=== PATIENT | female | born 1935 | race Caucasian/White ===

== ENCOUNTER 2016-10-01 22:38 | Inpatient (IN) | payer MEDICARE, MEDICAID ==
[~2016-10-01] VITALS: Ht 152.4 cm; Wt 57.1 kg
[~2016-10-01 22:38] MED LIST: ASPI-973 PO; CHOL500011 PO; ESOM40CA41 PO; FURO-128 PO; GABA-504 PO; GABA100C PO; MULT-1018 PO; PRAM0.252 PO; SPIR25TA3 PO
[2016-10-01 22:41] VITALS: BP 203/71; PULSE 93; RESP 19; O2SAT 98
--- NOTE | 2016-10-01 23:07 | ED.REPORT ---
HPI-Extremity Problem Lower Date of Service Oct 01, 2016 ED Provider: Doc,Ed MD This is an 81 year old female with a history of HTN, hyperlipidemia, COPD, chronic kidney disease, right femoropopliteal bypass graft, s/p bilateral iliac artery angioplasty and stent placement presenting to the emergency department via EMS complaining of bilateral leg pain that began one month ago. Associated symptoms include redness and swelling of R calf and R knee pain. Denies fever, chills, nausea, vomiting, abdominal pain, constipation, diarrhea, or dysuria. Nursing Notes Stated Complaint: RIGHT LEG PAIN Chief Complaint: Extremity Trauma Nursing Notes Reviewed: Yes Allergies: Coded Allergies: acetaminophen (Verified Allergy, Severe, Rash,Itching,, 10/01/16) cephalexin (Verified Allergy, Severe, Rash,Itching,, 10/01/16) hydrocodone (Verified Allergy, Severe, Rash,Itching,, 10/01/16) codeine (Verified Adverse Reaction, Intermediate, N/V, 10/01/16) ITCHING Uncoded Allergies: TAPE (Allergy, Mild, Rash,Itching,, 06/08/16) pulls skin off, thin skin - per patient Scheduled Aspirin (Aspirin) 81 Mg Tablet 81 MG PO DAILY Cholecalciferol (Vitamin D3) (Vitamin D3) 5,000 Unit Tablet 5,000 UNIT PO DAILY Esomeprazole Magnesium (Nexium) 40 Mg Capsule.dr 80 MG PO DAILY Furosemide (Lasix) 40 Mg Tablet 40 MG PO DAILY Gabapentin (Gabapentin) 400 Mg Capsule 400 MG PO HS Gabapentin (Neurontin) 100 Mg Capsule 100 MG PO TID Multivitamin (Multi Vitamin Daily) 1 Each Tablet 1 EACH PO DAILY Pramipexole Dihydrochloride (Mirapex) 0.25 Mg Tablet 0.25 MG PO TID Spironolactone (Spironolactone) 25 Mg Tablet 25 MG PO DAILY General Time Seen by MD: 23:07 Chief Complaint Leg injury right Hx Obtained From: Patient Arrived By: Walk-in Onset Occurred: Just prior to arrival Symptom Duration: Since onset Severity: Current: Moderate Pertinent Negative: Pt denies other symptoms Recent Healthcare: No recent doctor visit, No recent hospitalization Similar Sx Previous: No Past Medical History Past Medical History 1. Significant for peripheral vascular disease, with five surgeries total, including a right fem-pop bypass in June 2006 with two redo in December 2006 and February 2007, along with bilateral iliac artery angioplasty and stent placement. 2. Chronic kidney disease, stage 3. 3. Hypertension. 4. Hyperlipidemia. 5. History of CVA with minimal residual defect. 6. COPD, still smoking. 7. Glaucoma. 8. History of GI bleed secondary to Plavix along with small-bowel AVMs. 9. Anemia of chronic disease with history of multiple transfusions due to her upper gastrointestinal bleeding. 10. The patient had retroperitoneal bleeding status post iliac stenting back in April 2012. 11. Restless legs syndrome. 12. Gastroesophageal reflux disease. 13. Upper gastrointestinal bleed. 14. Type II diabetes mellitus, oral agent controlled Past Surgical History Hysterectomy, appendectomy, , right femoralpopliteal bypass graft, with two redo's, as well as the bilateral iliac artery angioplasty and stent placement. Smoking History Current Some Day Smoker Social History Alcohol Use: Denies alcohol use Drug Use: Denies drug use Ambulatory Status Independent Review of Systems Constitutional: Denies: Chills, Fever Musculoskeletal: Reports: Extremity pain, Denies: Extremity swelling, Neck pain Complete sys rev & neg: except as marked. Respiratory: Denies: Non-productive cough, Shortness of breath Cardiovascular: Denies: Chest pain GI: Denies: Abdominal pain, Nausea, Vomiting Physical Exam Initial Vital Signs Vital Signs (First) Date Time Temp Pulse Resp B/P Pulse Ox O2 Delivery O2 Flow Rate FiO2 10/01/16 22:41 38.4 93 19 203/71 98 Room Air Initial VS: Reviewed General/Constitutional: Well-developed, Well-nourished Head / Eyes: Atraumatic, Normocephalic, PERRL ENT: Mucous membranes moist, Conjunctiva normal, No scleral icterus Neck: Supple, Non-tender, Full range of motion Respiratory: Breath sounds normal, Clear to auscultation, No respiratory distress Cardiovascular: Regular rate & rhythm, Heart sounds normal, Intact distal pulses Abdomen / GI: Soft, Non-tender, No guarding, No rebound, No distention Upper Extremities: Vascular intact, Neuro intact, No swelling, No tenderness Skin: Warm, Dry, No cyanosis Neurologic: Alert, Oriented, Nonfocal Psychiatric: Mood/affect normal, Behavior normal, Normal thought content Lower Extremity / Pelvis / MS: Neurologic intact, Vascular intact Significant R LE erythema and edema when compared to left. Erythema starts distal to the R knee and extends down past the ankle. L LE normal. Ankle / Foot: Atraumatic, Inspection NL, Full range of motion, No swelling, No erythema, Non-tender, No deformity, Neurologic intact, Vascular intact, No edema 2+ DP and PT pulses bilaterally Interpretation & Diagnostics Lab Results Interpretation Result Diagram: 10/01/16 2355 10/01/16 2355 Test 10/01/16 23:55 White Blood Count 9.4th/mm3 (3.8-10.1) Red Blood Count 3.69mil/mm3 (3.90-5.20) Hemoglobin 10.6g/dL (12.0-15.6) Hematocrit 32.1% (35.0-46.0) Mean Corpuscular Volume 87.0fL (81-100) Mean Corpuscular Hemoglobin 28.7pg (27.0-35.0) Mean Corpuscular Hemoglobin Concent 33.0% (32.0-37.0) Red Cell Distribution Width 14.4% (12.3-15.4) Platelet Count 158bil/L (150-400) Neutrophils (%) (Auto) 81.0% (40-74) Lymphocytes (%) (Auto) 9.1% (14-46) Monocytes (%) (Auto) 6.8% (4-12) Eosinophils (%) (Auto) 2.3% (0-5) Basophils (%) (Auto) 0.2% (0-3) Prothrombin Time 10.2sec (8.1-12.5) Prothromb Time International Ratio 0.95ratio Activated Partial Thromboplast Time 26.4sec (22.8-33.0) Sodium Level 136mEq/L (134-144) Potassium Level 4.9mEq/L (3.5-5.2) Chloride Level 101mEq/L (97-108) Carbon Dioxide Level 21mmol/L (18-29) Blood Urea Nitrogen 43mg/dL (8-27) Creatinine 1.46mg/dL (0.57-1.00) Estimat Glomerular Filtration Rate 49mL/min (>59) Glucose Level 114mg/dL (60-99) Lactic Acid Level 0.7mmol/L (0.4-2.0) Calcium Level 8.9mg/dL (8.5-10.1) Total Bilirubin 0.3mg/dL (0.0-1.2) Aspartate Amino Transf (AST/SGOT) 15U/L (0-50) Alanine Aminotransferase (ALT/SGPT) 11U/L (0-32) Alkaline Phosphatase 65U/L (25-165) Total Protein 7.1g/dL (6.4-8.4) Albumin 4.0g/dL (3.4-5.0) Procalcitonin 0.12ng/mL (0.00-0.08) X-Ray Chest Interpretation Chest Xray Interpretation: Diffuse interstitial edema of viral pattern Interpretation / Wet Read by: Wet read ED physician Re-Eval/Medical Decision Med Decision/Clinical Course 81-year-old female with extensive past medical history including chronic anemia , chronic renal failure, hypertension, COPD, status post femoropopliteal bypass on the right here with fever, and bilateral lower extremity pain with redness and swelling to right lower extremity. Differential diagnosis includes but is not limited to cellulitis versus pneumonia versus influenza versus urinary tract infection. DVT is also on differential. Patient's labs are remarkable for chronic baseline renal insufficiency and chronic anemia, also at baseline. She is febrile in the department. Her chest x-ray does not show any focal infiltrate, but does appear to have a viral pattern. She was unable to urinate in the emergency department, so I have given her a 500 mL fluid bolus. She does appear to have cellulitis of the right lower extremity. I have deferred ultrasound of her right lower extremity for DVT until the morning, as I do not feel it will affect her disposition and she is being admitted anyway. Admitting hospitalist is aware of the need for ultrasound in the morning. Patient is aware and amenable to admission at this time. I have given her antibiotics, and pancultured her. Re-Evaluation/Progress : Time of Eval: 00:56 Re-Evaluation/Progress Note: Discussed need for admission Consultation : Referral / Consult Name: Kamaljit Dang MD Consulted With: Hospitalist Call Returned at: 00:44 Sld Educational Aide: Accepts admit Counseled Regarding: Diagnosis, Lab results, Need for follow-up, Need for admission Discharge & Departure Impression: Primary Impression: UTI (urinary tract infection) Urinary tract infection type: site unspecified Hematuria presence: without hematuria Qualified Code: N39.0 - Urinary tract infection, site not specified Additional Impressions: Cellulitis Site of cellulitis: extremity Site of cellulitis of extremity: lower extremity Laterality: right Qualified Code: L03.115 - Cellulitis of right lower limb Fever Fever type: unspecified Qualified Code: R50.9 - Fever, unspecified Disposition: ADMITTED TO HOSPITAL Discharge Condition All VS Reviewed: Yes Condition: Stable Referrals: Renée Borges (PCP) Scribe Attestation Portions of this note were transcribed by Kassy Watkins. I, Dr. Ji personally performed the history, physical exam and medical decision-making; I reviewed and confirmed the accuracy of the information in the transcribed note. Signed by: titi Ortega. 10/01/2016, 23:00. Pamela Ji MD Oct 01, 2016 23:07 KASSY WATKINS Oct 01, 2016 23:11
[2016-10-01] MEDS ORDERED: 0.9% Sodium Chloride 500 ML IV ONE (23:35)
[2016-10-02] VITALS (7 sets, daily range): BP systolic 128–181; BP diastolic 39–70; PULSE 83–98; RESP 16–22; O2SAT 94–97
[2016-10-02 00:04] LABS: BASOPHILS % (AUTO) 0.2 % (0-3); EOSINOPHILS % (AUTO) 2.3 % (0-5); MONOCYTES % (AUTO) 6.8 % (4-12); Mean Corpuscular Hemoglobin 28.7 pg (27.0-35.0); Platelet Count 158 bil/L (150-400)
[2016-10-02 00:23] LABS: INR 0.95 ratio
[2016-10-02] MEDS ORDERED: Vancomycin Inj 1,000 MG in IV Premix 1 EACH IV ONE ×2 (00:30→03:00)
[2016-10-02] MEDS ORDERED: Piperacillin-Tazo 3.375 Gm Inj 3.375 GM in Dextrose 5% Minibag Plus 50 ML IV ONE (00:30)
[2016-10-02] MEDS ORDERED: Alum-Mag Hydrox-Simeth 30 mL Suspension PO PRN (00:55)
[2016-10-02] MEDS ORDERED: Ondansetron 2 mg/mL 2 mL Inj IVPUSH PRN (00:55)
[2016-10-02] MEDS ORDERED: Polyethylene Glycol (PEG) 17 Gm Powder PO PRN (01:15)
--- NOTE | 2016-10-02 01:52 | NUR ---
ADMIT Pt arrived at 0152. Report received for ED RN. Pt arrived via [facility]. Addendum: 10/02/16 at 0208 by FRANCISCO BOSTON RN Pt walked from rmerom to bed with 1-2PA and pt is unsteady on feet, wobbling around. Used standing scale for weight, though pt needed support. Resident in room now. Addendum: 10/02/16 at 0308 by FRANCISCO BOSTON RN Pt somnolent during admission, fell asleep often mid-sentence, mumbled responses, needed repeated stimuli to awaken. Pt states this is normal at home for her as well. NS running at 100, one dose Vanco to be given, one dose labetolol to be given.
[2016-10-02] MEDS ORDERED: 0.9% Sodium Chloride 1,000 ML IV ONE (02:40)
[2016-10-02] MEDS: Vancomycin Dose per Pharmacist XX SCH ×2 (02:40→08:30)
[2016-10-02] MEDS ORDERED: Labetalol 5 mg/mL 4 mL Inj IVPUSH ONE (03:05)
--- NOTE | 2016-10-02 03:10 | PCM.HPMED ---
Subjective Date of Service Oct 02, 2016 Primary Provider: Admitting Physician: Primary Care Physician: Renée Borges Attending Physician: Chief Complaint: Bilateral leg pain History of Present Illness: Brie Lutz is an 81-year-old female with past medical history significant for CVA, hypertension, hyperlipidemia, CAD status post stent placement, diabetes type II, CKD stage III, COPD, and right fem-pop bypass who presents to the ED via EMS complaining of one month of bilateral leg pain. Patient is a poor historian. Patient states that she has had increasing difficulty walking even with her walker due to the pain for the last two weeks. She had presented two weeks ago to urgent care and was prescribed muscle relaxants that did not improve symptoms. She denies any trauma, cuts, or sores on legs and feet. She states her legs in her opinion do not appear any different. When asked specifically about the redness she states that it is always that way and that the right leg is always more swollen than the left since her fem-pop bypass. Due to the pain she has not been eating as well because she does not feel up to standing and preparing meals. Years ago she saw a girls swimming coach but has not recently. She denies fever, chills, night sweats, nausea, vomiting, diarrhea, constipation, dysuria, hematuria, chest pain, or shortness of breath. Patient received flu vaccine this year. In the ED vitals were temp 38.4, pulse 93, BP 203/71, RR 19 with O2 sat of 98% on RA. Initial labs were significant for WBC 9.4, Hgb 10.6, Hct 32.1, BUN 43, Creatinine 1.46, and glucose 114. Lactic acid was negative. Rapid flu was negative. Patient was given one dose of Zosyn in ED. PCP: Dr. Borges Review of Systems: Comprehensive review of systems was conducted with the patient and found to be negative except as noted above in HPI. Allergies Coded Allergies: acetaminophen (Verified Allergy, Severe, Rash,Itching,, 10/02/16) cephalexin (Verified Allergy, Severe, Rash,Itching,, 10/02/16) hydrocodone (Verified Allergy, Severe, Rash,Itching,, 10/02/16) codeine (Verified Adverse Reaction, Intermediate, N/V, 10/02/16) ITCHING Uncoded Allergies: TAPE (Allergy, Mild, Rash,Itching,, 06/08/16) pulls skin off, thin skin - per patient Home Medications Nexium 80 mg daily Lasix 40 mg daily Gabapentin 100 mg TID, 400 mg HS Mirapex 0.25 mg TID Spironolactone 25 mg daily Sertraline 50 mg daily PMH History of CVA with minimal residual defect. Chronic kidney disease, stage 3. Hypertension. Hyperlipidemia. Type 2 diabetes mellitus, not on medication, diet controlled Peripheral vascular disease, with five surgeries total, including a right fem- pop bypass in June 2006 with two redo in December 2006 and February 2007, along with bilateral iliac artery angioplasty and stent placement. COPD, still smoking. Glaucoma. History of GI bleed secondary to Plavix and small bowel AVMs. History of retroperitoneal bleeding status post iliac stenting back in April 2012. Anemia, multifactorial, likely associated with her chronic iron deficiency as well as her chronic renal disease. Restless legs syndrome. Gastroesophageal reflux disease. Surgical History Hysterectomy Appendectomy Right fem-pop bypass graft, with two redo's Bilateral iliac artery angioplasty and stent placement. Family History No cancer Sister - at age 80 Sister - due to CVA Mother - but no known health conditions Father - but no known health conditions Social History Hx Alcohol Use: No Hx Substance Use: No Hx Tobacco Use: Yes (3 cigarettes a day) Smoking Status: Current Every Day Smoker Living Arrangement: Alone Exam Vital Signs Vital Sign - Last Date Time Temp Pulse Resp B/P Pulse Ox O2 Delivery O2 Flow Rate FiO2 10/02/16 01:05 98 16 181/53 97 Room Air 10/01/16 22:41 38.4 Intake and Output 10/01/16 10/01/16 10/02/16 Cumulative From/Thru 15:00 23:00 07:00 10/01/16 22:41 - 10/01/16 23:57 Intake Total 500 ml 500 ml Balance 500 ml 500 ml Intake IV Total 500 ml 500 ml Exam General: No acute distress, well-developed, well-nourished, appropriately interactive HEENT: Normocephalic, atraumatic. External ears without defect. Pupils equal, round, and reactive to light and accommodation. Anicteric sclerae, moist conjunctivae, and no lid lag. Dry oral mucosa. Neck: Supple with full range of motion. No jugular venous distension. No bruits. No lymphadenopathy or thyromegaly. Cardiovascular: Regular rate and rhythm with 2/6 systolic murmur. Pulmonary: Clear to auscultation bilaterally with no crackles, wheezes, or rhonchi. Normal respiratory effort with no use of accessory muscles. Abdomen: Bowel tones present. Soft, nontender, nondistended. No hepatosplenomegaly or masses appreciated. Extremities: Right lower extremity erythema and edema starts distal to the knee and extends to the ankle. Left lower extremity without abnormality. No open wounds or abrasions. Posterior tibialis and dorsal pedis pulses equal and 2/4 bilaterally. Neurological: Cranial nerves grossly intact. Normal muscle strength, tone, and bulk. Reflexes, coordination, and sensory function within normal limits. Difficulty ambulating. Walks with walker at baseline. Psychiatric: Normal mood and affect. Alert and oriented to person, place, and time. Lab and Diagnostics Result Diagram: 10/01/16 5693 10/01/16 9336 Assessment & Plan Brie Lutz is an 81-year-old female with past medical history significant for CVA, hypertension, hyperlipidemia, CAD status post stent placement, diabetes type II, CKD stage III, COPD, and right fem-pop bypass who presents to the ED via EMS complaining of one month of bilateral leg pain. Admitted for cellulitis. 1. Cellulitis, present on admission. Active. Right lower extremity erythema and warmth. Possible swelling although difficult to ascertain baseline as patient had fem-pop bypass on right lower extremity and has had chronic lymphedema. - Patient febrile on admission. - Zosyn given in ED. Antibiotics switched to Vancomycin. - ASO titer pending. - Lactic acid negative. - Repeat CBC in the morning. - Consider lower extremity ultrasound. - Physical therapy evaluation ordered. 2. Acute on chronic kidney disease stage 3, present on admission. Active. Patient has had poor oral intake and BP is elevated currently. Last known Creatinine is 1.17 on 05/06/16. - Does not follow with nephrology. - Gentle IV fluid hydration with NS at 100 ml/hr for a total of 1L and then reassess. - Home regimen of spironolactone and furosemide held. - Repeat BMP in the morning. 3. Type 2 diabetes mellitus, present on admission. Active. Patient no longer takes oral agents. Manages with dietary modifications. - Blood glucose on admit 114. - Hemoglobin A1c pending. - Will continue to monitor. 4. Gastroesophageal reflux disease, present on admission. Chronic. - Nexium 80 mg daily continued from home. 5. Restless legs syndrome, present on admission. Chronic. - Mirapex 0.25 mg TID continued from home. - Gabapentin 100 mg TID, 400 mg HS continued from home. 6. Hypertension, present on admission. Active. Blood pressure elevated on admission at 203/71 now 175/67. Patient asymptomatic. - No blood pressure medications in home regimen except diuretics. - Single dose of labetalol 5 mg given. Will monitor effect. - Continue to monitor. 7. Other Chronic Conditions - History of CVA with minimal residual defect - Hyperlipidemia - Peripheral vascular disease - COPD, still smoking - Glaucoma - History of GI bleed secondary to Plavix and small bowel AVMs - History of retroperitoneal bleeding status post iliac stenting back in April 2012 - Anemia, multifactorial, likely associated with her chronic iron deficiency as well as her chronic renal disease Patient is admitted under observation status with expected length of stay less than 2 midnights due to severity of presenting symptoms, risk of adverse event, and complexity of treatment plan. Pain Evaluation: Adequate Pain Control GI Prophylaxis: Proton Pump Inhibitor VTE Prophylaxis: Sub-Q Heparin (Unfractionated) Resuscitation Status: DNR/DNI:Do Not Resuscitate/Intubate Attending Statement The patient was seen and examined together with Dr. Connolly on 10/02 and I agree with the history, exam and plan as outlined in the note above. COSMO CONNOLLY DO Oct 02, 2016 01:28 Kamaljit Dang MD Oct 02, 2016 03:59
[2016-10-02 03:28] LABS: APPEARANCE,URINE HAZY (CLEAR,HAZY); COLOR,URINE YELLOW (YELLOW); OCCULT BLOOD,URINE TRACE (NEGATIVE); UROBILINOGEN,URINE NORMAL (NORMAL)
--- NOTE | 2016-10-02 04:17 | PCM.CONPHA ---
Subjective Date of Service: Oct 02, 2016 Requesting Provider: COSMO CONNOLLY DO Bilateral leg pain Reason for Pharmacy Consult: Vancomycin Dosing Objective Vital Signs Date Time Temp Pulse Resp B/P Pulse Ox O2 Delivery O2 Flow Rate FiO2 10/02/16 02:08 37.3 93 18 175/67 95 Room Air 10/02/16 01:44 98 22 157/39 96 10/02/16 01:05 98 16 181/53 97 Room Air 10/01/16 22:41 38.4 93 19 203/71 98 Room Air Intake and Output 09/30/16 10/01/16 10/02/16 00:00 00:00 00:00 Intake Total 500 ml Balance 500 ml Weight (Kilograms): 57.100 Height (Feet): 5 Height (Inches): 0 Test 10/01/16 23:55 10/02/16 02:00 White Blood Count 9.4th/mm3 (3.8-10.1) Red Blood Count 3.69mil/mm3 (3.90-5.20) Hemoglobin 10.6g/dL (12.0-15.6) Hematocrit 32.1% (35.0-46.0) Mean Corpuscular Volume 87.0fL (81-100) Mean Corpuscular Hemoglobin 28.7pg (27.0-35.0) Mean Corpuscular Hemoglobin Concent 33.0% (32.0-37.0) Red Cell Distribution Width 14.4% (12.3-15.4) Platelet Count 158bil/L (150-400) Neutrophils (%) (Auto) 81.0% (40-74) Lymphocytes (%) (Auto) 9.1% (14-46) Monocytes (%) (Auto) 6.8% (4-12) Eosinophils (%) (Auto) 2.3% (0-5) Basophils (%) (Auto) 0.2% (0-3) Prothrombin Time 10.2sec (8.1-12.5) Prothromb Time International Ratio 0.95ratio Activated Partial Thromboplast Time 26.4sec (22.8-33.0) Sodium Level 136mEq/L (134-144) Potassium Level 4.9mEq/L (3.5-5.2) Chloride Level 101mEq/L (97-108) Carbon Dioxide Level 21mmol/L (18-29) Blood Urea Nitrogen 43mg/dL (8-27) Creatinine 1.46mg/dL (0.57-1.00) Estimat Glomerular Filtration Rate 49mL/min (>59) Glucose Level 114mg/dL (60-99) Lactic Acid Level 0.7mmol/L (0.4-2.0) Calcium Level 8.9mg/dL (8.5-10.1) Total Bilirubin 0.3mg/dL (0.0-1.2) Aspartate Amino Transf (AST/SGOT) 15U/L (0-50) Alanine Aminotransferase (ALT/SGPT) 11U/L (0-32) Alkaline Phosphatase 65U/L (25-165) Total Protein 7.1g/dL (6.4-8.4) Albumin 4.0g/dL (3.4-5.0) Procalcitonin 0.12ng/mL (0.00-0.08) Urine Color Yellow (YELLOW) Urine Appearance Hazy (CLEAR,HAZY) Urine pH 6.0 (5.0-8.0) Urine Specific [place] 1.015 (1.003-1.035) Urine Protein Negativemg/dL (NEG,TRACE) Urine Glucose (UA) Negativemg/dL (NEGATIVE) Urine Ketones Negativemg/dL (NEGATIVE) Urine Occult Blood Trace (NEGATIVE) Urine Nitrite Positive (NEGATIVE) Urine Bilirubin Negative (NEGATIVE) Urine Urobilinogen Normalmg/dL (NORMAL) Urine Leukocyte Esterase Trace (NEGATIVE) Urine RBC 0-2/hpf (0-2) Urine WBC 11-50/hpf (0-5) Urine Epithelial Cells Occasional/hpf (NONE-MOD) Urine Crystals None seen (NONE SEEN) Urine Bacteria Many/hpf (NONE-FEW) Urine Hyaline Casts None/lpf (NONE) Urine Granular Casts None seen (NONE SEEN) Urine Waxy Casts None seen (NONE SEEN) Urine Red Blood Cell Casts None seen (NONE SEEN) Urine White Blood Cell Casts None seen (NONE SEEN) Urine Mucus None seen (None Seen) Urine Trichomonas None seen (NONE SEEN) Urine Yeast None (NONE SEEN) Urine Culture Reflexed Indicated Assessment/Plan Assessment/Plan A: * Vancomycin dosing by pharmacy for 81 y/o diabetic woman with cellulitis * The patient received a vancomycin loading dose of 1000 mg IV * She has CASEY on CKD with a SCr of 1.46 mg/dL * Vancomycin half-life estimations based on CrCl may be inaccurate due to CASEY * Estimated vancomycin Vd is 40 liters * Vancomycin 500 mg IV every 24 hours would likely be appropriate for this patient P: * Drawing a vancomycin level about 24 hours after the loading dose to monitor vancomycin clearance, due to the patient's renal risk * Pharmacy to determine dosing based on the level * Target a vancomycin trough range of 10 - 15 mcg/mL Thank you. Pharmacy will continue to follow. Genny Valles, PharmD Genny Valles Oct 02, 2016 04:17
[2016-10-02 07:01] LABS: BASOPHILS % (AUTO) 0.2 % (0-3); EOSINOPHILS % (AUTO) 1.2 % (0-5); MONOCYTES % (AUTO) 8.5 % (4-12); Mean Corpuscular Hemoglobin 28.7 pg (27.0-35.0); NEUTROPHILS % (AUTO) 77.3 % (40-74); Platelet Count 147 bil/L (150-400)
[2016-10-02 07:26] LABS: Magnesium 1.9 mg/dL (1.6-2.6)
--- NOTE | 2016-10-02 07:47 | DRSVH ---
PROCEDURE: X-RAY CHEST, TWO VIEWS ([id number]) INDICATIONS: cough TECHNIQUE: 2 views of the chest were acquired. COMPARISON: [facility], CR, XR CHEST 2VW, 05/20/2016, 13:58. FINDINGS: Surgical changes and devices: Surgical clips projecting in the base of neck. Lungs and pleura: No pleural effusions or pneumothorax. Lungs are clear. Diffuse scarring/atelecta sis, however increased ill-defined groundglass opacities Mediastinum: Mediastinal contours are normal. Heart size is normal. Bones and chest wall: No suspicious bony abnormalities. Lateral curvature of the spine and diffuse d iscogenic changes. Soft tissues appear unremarkable. IMPRESSION: Mildly increased diffuse ill-defined and groundglass opacities raising the possibility of early pulmonary edema, versus atypical/viral pneumonia. Please correlate clinically Dictated by: Misael Carranza M.D. on 10/02/2016 at 7:45 Approved by: Misael Carranza M.D. on 10/02/2016 at 7:47
[2016-10-02] MEDS: Heparin 5,000 Unit/mL Inj SUBQ SCH ×2 (08:29→16:21)
[2016-10-02] MEDS: Pantoprazole 40 mg ER24 Tablet PO SCH (08:29)
--- NOTE | 2016-10-02 09:14 | NUR ---
Evaluation completed. Please go to "Notes" then click on "Assessments and Notes" (bottom left corner of screen). Then select appropriate discipline tab on top of screen.
--- NOTE | 2016-10-02 14:13 | NUR ---
Activity/ Screening Patient ambulating in the hallway with PT this morning with no difficulty. gait steady using FWW. Nasal swab sent to lab with a negative result for Rapid Flu screening. Eating and drinking well. Will continue to monitor.
--- NOTE | 2016-10-02 15:34 | NUR ---
[facility] signed
--- NOTE | 2016-10-02 16:05 | NUR ---
Social Work Note: Initial Assessment Data& Assessment: EMR reviewed. SW met with pt at bedside to discuss discharge planning, SW role explained. SW phone number provided on [employer]. Brie Lutz is a 81 year old female admitted today 10/02/2016 for UTI and Cellulitis with a fever. Pt has Medicare and [facility] supplemental insurance coverage. Pt sees ASHIA Leal for primary care. Pt lives in [place] in a first floor apartment, alone, and is independent at baseline. Pt uses a 4WW at baseline and also has an electric wheelchair at home but does not require its use at this time. Pt denies any HH or SNF hx. Pt denies any LTC insurance or VA benefits. SW requested a copy of her [facility] paperwork. Pt explained her brother Russell ([facility]) plans to transport her home when medically ready. Per PT, pt walked 300ft and is cleared to go home when medically ready. Pt denies any other needs at this time, SW to continue to follow if any needs arise. Plan: Anticipated discharge home via POV when medically ready. Pt denies any other needs at this time, SW to continue to follow if any needs arise. SUNIL Cosby Addendum: 10/02/16 at 1610 by JOCELYN JETT Amended: Links added.
[2016-10-03 00:50] VITALS: BP 182/65; PULSE 93; RESP 16; O2SAT 91
[2016-10-03] MEDS: Heparin 5,000 Unit/mL Inj SUBQ SCH ×3 (01:32→16:23)
[2016-10-03 04:33] VITALS: BP 172/63; PULSE 83; RESP 16; O2SAT 92
[2016-10-03] MEDS ORDERED: Vancomycin Serum Level XX ONE (05:00)
--- NOTE | 2016-10-03 06:01 | NUR ---
HTN Pt has been hypertensive MD Alton ashford paged, no new orders, continued to monitor. Pt has been asymptomatic and resting well.
[2016-10-03 07:20] VITALS: BP 185/68; PULSE 99; RESP 24; O2SAT 92
[2016-10-03] MEDS: Pantoprazole 40 mg ER24 Tablet PO SCH (07:34)
--- NOTE | 2016-10-03 08:46 | NUR ---
Fever Pt had fever this morning at 0720 of 39.1. Gave pt 975mg Tylenol. Pt temp re checked at 0830 temp was 37.5.
[2016-10-03] MEDS: Piperacillin-Tazo 3.375 Gm Inj 3.375 GM in Dextrose 5% Minibag Plus 50 ML IV SCH ×2 (11:00→16:30)
--- NOTE | 2016-10-03 15:21 | PCM.PNMED ---
Subjective Date of Service Oct 03, 2016 Subjective Continues to spike fever, temp 39.1 this morning. Urine culture growing Escherichia coli. Antibiotics switched from vancomycin to Zosyn. Influenza screening negative Exam Vital Signs Vital Sign - Last Date Time Temp Pulse Resp B/P Pulse Ox O2 Delivery O2 Flow Rate FiO2 10/03/16 08:40 37.5 10/03/16 07:20 99 24 185/68 92 Room Air Intake and Output 10/02/16 10/02/16 10/03/16 Cumulative From/Thru 15:00 23:00 07:00 10/01/16 22:41 - 10/03/16 06:46 Intake Total 914 ml 600 ml 2747 ml Output Total 600 ml 1400 ml Balance 914 ml 0 ml 1347 ml Intake Oral 600 ml 1080 ml IV Total 904 ml 1657 ml Tube Irrigant 10 ml 10 ml Output Urine Total 600 ml 1400 ml # Voids 3 3 7 # Bowel Movements 1 1 Exam General: No acute distress, well-developed, well-nourished, appropriately interactive HEENT: Normocephalic, atraumatic. External ears without defect. Pupils equal, round, and reactive to light and accommodation. Anicteric sclerae, moist conjunctivae, and no lid lag. Dry oral mucosa. Neck: Supple with full range of motion. No jugular venous distension. No bruits. No lymphadenopathy or thyromegaly. Cardiovascular: Regular rate and rhythm with 2/6 systolic murmur. Pulmonary: Clear to auscultation bilaterally with no crackles, wheezes, or rhonchi. Normal respiratory effort with no use of accessory muscles. Abdomen: Bowel tones present. Soft, nontender, nondistended. No hepatosplenomegaly or masses appreciated. Extremities: Right lower extremity erythema and edema starts distal to the knee and extends to the ankle. Left lower extremity without abnormality. No open wounds or abrasions. Posterior tibialis and dorsal pedis pulses equal and 2/4 bilaterally. Neurological: Cranial nerves grossly intact. Normal muscle strength, tone, and bulk. Reflexes, coordination, and sensory function within normal limits. Difficulty ambulating. Walks with walker at baseline. Psychiatric: Normal mood and affect. Alert and oriented to person, place, and time. IVs and Medications Medications Reviewed: Medications were reviewed in detail Lab and Diagnostics Result Diagram: 10/02/16 0640 10/03/16 0625 Microbiology Microbiology LOWELL CULT URINE Preliminary 10/03/16-822 PRELIMINARY ID GRAM NEG JESSICA, PROBABLE E COLI SUSCEPTIBILITIES TO FOLLOW COLONY COUNT/QUANTITY >100,000 CFU/ml X-Rays, CTs and MRIs PROCEDURE: X-RAY CHEST, TWO VIEWS ([id number]) INDICATIONS: cough IMPRESSION: Mildly increased diffuse ill-defined and groundglass opacities raising the possibility of early pulmonary edema, versus atypical/viral pneumonia. Please correlate clinically Dictated by: Misael Carranza M.D. on 10/02/2016 at 7:45 Assessment & Plan Brie Lutz is an 81-year-old female with past medical history significant for CVA, hypertension, hyperlipidemia, CAD status post stent placement, diabetes type II, CKD stage III, COPD, and right fem-pop bypass who presents to the ED via EMS complaining of one month of bilateral leg pain. Admitted for cellulitis. # sepsis due to cellulitis and UTI,resolving -Temp 39.1, CASEY with initial creatinine 1.46, initial HR 98 -Chest x-ray viral pneumonia versus pulmonary edema. Respiratory viral PCR ordered,home Lasix resumed.Added Azithromycin pending workup # E.coli UTI,acute,poa -pyuria on UA and urine culture growing Escherichia coli. Awaiting sensitivity -Continue Zosyn #. Cellulitis, present on admission. Active. Right lower extremity erythema and warmth. Possible swelling although difficult to ascertain baseline as patient had fem-pop bypass on right lower extremity and has had chronic lymphedema. - Patient febrile on admission. - Zosyn given in ED. Antibiotics initially switched to Vancomycin. will switch back to Zosyn . - ASO titer pending. - Lactic acid negative. - Physical therapy evaluation ordered. #. Acute on chronic kidney disease stage 3, present on admission. Active. Patient has had poor oral intake and BP is elevated currently. Last known Creatinine is 1.17 on 05/06/16. - Does not follow with nephrology. - Gentle IV fluid hydration with NS at 100 ml/hr for a total of 1L . Creatinine improving - Home regimen of spironolactone held,resume furosemide #. Type 2 diabetes mellitus, present on admission. Active. Patient no longer takes oral agents. Manages with dietary modifications. - Blood glucose on admit 114. - Hemoglobin A1c pending. - Will continue to monitor. #. Gastroesophageal reflux disease, present on admission. Chronic. - Nexium 80 mg daily continued from home. #. Restless legs syndrome, present on admission. Chronic. - Mirapex 0.25 mg TID continued from home. - Gabapentin 100 mg TID, 400 mg HS continued from home. #. Hypertension, present on admission. Active. Blood pressure elevated on admission at 203/71 . Patient asymptomatic. - No blood pressure medications in home regimen except diuretics. - Single dose of labetalol 5 mg given on admission. Will monitor effect. -Resumed home Lasix - Continue to monitor. #. Other Chronic Conditions - History of CVA with minimal residual defect - Hyperlipidemia - Peripheral vascular disease - COPD, still smoking - Glaucoma - History of GI bleed secondary to Plavix and small bowel AVMs - History of retroperitoneal bleeding status post iliac stenting back in April 2012 - Anemia, multifactorial, likely associated with her chronic iron deficiency as well as her chronic renal disease Disposition: Discharge home 2-3 days . Patient had fever this morning. Needs to be fever free for at least 24 hours GI Prophylaxis: Proton Pump Inhibitor VTE Prophylaxis: Sub-Q Heparin (Unfractionated) VTE Mechanical Devices: Intermittant Pneumatic CD Resuscitation Status: DNR/DNI:Do Not Resuscitate/Intubate Marquez Swift MD Oct 03, 2016 15:21
[2016-10-03] MEDS ORDERED: Azithromycin Inj 500 MG in Dextrose 5% w/Vial Mate 250 ML IV SCH (15:35)
[2016-10-04] VITALS (8 sets, daily range): BP systolic 103–194; BP diastolic 55–80; PULSE 14–103; RESP 16–18; O2SAT 94–98
[2016-10-04] MEDS: Piperacillin-Tazo 3.375 Gm Inj 3.375 GM in Dextrose 5% Minibag Plus 50 ML IV SCH ×3 (01:06→16:16)
[2016-10-04] MEDS: Heparin 5,000 Unit/mL Inj SUBQ SCH ×3 (01:06→16:17)
--- NOTE | 2016-10-04 06:06 | NUR ---
BM Pt was unable to make it to the bathroom and had bowel movement all over the room. Roomate was moved to different room, and housekeeping came to help clean up. Pt showered and got all cleaned up. BSC put directly next to bed now in case of urgency.
[2016-10-04] MEDS: Pantoprazole 40 mg ER24 Tablet PO SCH (08:32)
--- NOTE | 2016-10-04 17:23 | PCM.PNMED ---
Subjective Date of Service Oct 04, 2016 Subjective Continues to have fever. No leukocytosis. Viral panel negative. No cough, no abdominal pain, leg cellulitis markedly improved Exam Vital Signs Vital Sign - Last Date Time Temp Pulse Resp B/P Pulse Ox O2 Delivery O2 Flow Rate FiO2 10/04/16 17:13 116/60 10/04/16 16:14 37.0 14 18 94 Room Air Intake and Output 10/03/16 10/03/16 10/04/16 Cumulative From/Thru 15:00 23:00 07:00 10/01/16 22:41 - 10/04/16 06:30 Intake Total 1536 ml 4283 ml Output Total 600 ml 2000 ml Balance 936 ml 2283 ml Intake Oral 1200 ml 2280 ml IV Total 336 ml 1993 ml Tube Irrigant 10 ml Output Urine Total 600 ml 2000 ml # Voids 2 9 # Bowel Movements 2 3 Exam General: No acute distress, well-developed, well-nourished, appropriately interactive HEENT: Normocephalic, atraumatic. External ears without defect. Pupils equal, round, and reactive to light and accommodation. Anicteric sclerae, moist conjunctivae, and no lid lag. Dry oral mucosa. Neck: Supple with full range of motion. No jugular venous distension. No bruits. No lymphadenopathy or thyromegaly. Cardiovascular: Regular rate and rhythm with 2/6 systolic murmur. Pulmonary: Clear to auscultation bilaterally with no crackles, wheezes, or rhonchi. Normal respiratory effort with no use of accessory muscles. Abdomen: Bowel tones present. Soft, nontender, nondistended. No hepatosplenomegaly or masses appreciated. Extremities: Right lower extremity erythema and edema starts distal to the knee and extends to the ankle. Left lower extremity without abnormality. No open wounds or abrasions. Posterior tibialis and dorsal pedis pulses equal and 2/4 bilaterally. Neurological: Cranial nerves grossly intact. Normal muscle strength, tone, and bulk. Reflexes, coordination, and sensory function within normal limits. Difficulty ambulating. Walks with walker at baseline. Psychiatric: Normal mood and affect. Alert and oriented to person, place, and time. IVs and Medications Medications Reviewed: Medications were reviewed in detail Lab and Diagnostics Result Diagram: 10/02/16 0640 10/03/16 0625 Microbiology Microbiology LOWELL CULT URINE Preliminary 10/03/16-822 PRELIMINARY ID GRAM NEG JESSICA, PROBABLE E COLI SUSCEPTIBILITIES TO FOLLOW COLONY COUNT/QUANTITY >100,000 CFU/ml X-Rays, CTs and MRIs PROCEDURE: X-RAY CHEST, TWO VIEWS ([id number]) INDICATIONS: cough IMPRESSION: Mildly increased diffuse ill-defined and groundglass opacities raising the possibility of early pulmonary edema, versus atypical/viral pneumonia. Please correlate clinically Dictated by: Misael Carranza M.D. on 10/02/2016 at 7:45 Assessment & Plan Brie Lutz is an 81-year-old female with past medical history significant for CVA, hypertension, hyperlipidemia, CAD status post stent placement, diabetes type II, CKD stage III, COPD, and right fem-pop bypass who presents to the ED via EMS complaining of one month of bilateral leg pain. Admitted for cellulitis. # sepsis due to cellulitis and UTI,resolving -Temp 39.1, CASEY with initial creatinine 1.46, initial HR 98 -Chest x-ray viral pneumonia versus pulmonary edema. Respiratory viral PCR ordered,home Lasix resumed.Added Azithromycin pending workup # E.coli UTI,acute,poa -pyuria on UA and urine culture growing Escherichia coli pansensitive -Continue Zosyn #. Cellulitis, present on admission. Active. Right lower extremity erythema and warmth. Possible swelling although difficult to ascertain baseline as patient had fem-pop bypass on right lower extremity and has had chronic lymphedema. - Patient febrile on admission. - Zosyn given in ED. Antibiotics initially switched to Vancomycin. switched back to Zosyn . - Lactic acid negative. - Physical therapy evaluation ordered. #. Acute on chronic kidney disease stage 3, present on admission. Active. Patient has had poor oral intake and BP is elevated currently. Last known Creatinine is 1.17 on 05/06/16. - Does not follow with nephrology. - Gentle IV fluid hydration with NS at 100 ml/hr for a total of 1L . Creatinine improving - Home regimen of spironolactone held,resume furosemide #. Type 2 diabetes mellitus, present on admission. Active. Patient no longer takes oral agents. Manages with dietary modifications. - Blood glucose on admit 114. - Hemoglobin A1c 6.5. - Will continue to monitor. #. Gastroesophageal reflux disease, present on admission. Chronic. - Nexium 80 mg daily continued from home. #. Restless legs syndrome, present on admission. Chronic. - Mirapex 0.25 mg TID continued from home. - Gabapentin 100 mg TID, 400 mg HS continued from home. #. Hypertension, present on admission. Active. Blood pressure elevated on admission at 203/71 . Patient asymptomatic. - No blood pressure medications in home regimen except diuretics. - Single dose of labetalol 5 mg given on admission. started amlodipine 5 mg daily -Resumed home Lasix - Continue to monitor. #. Other Chronic Conditions - History of CVA with minimal residual defect - Hyperlipidemia - Peripheral vascular disease - COPD, still smoking - Glaucoma - History of GI bleed secondary to Plavix and small bowel AVMs - History of retroperitoneal bleeding status post iliac stenting back in April 2012 - Anemia, multifactorial, likely associated with her chronic iron deficiency as well as her chronic renal disease Disposition: Discharge home 2-3 days . Patient had fever this morning. Needs to be fever free for at least 24 hours GI Prophylaxis: Proton Pump Inhibitor VTE Prophylaxis: Sub-Q Heparin (Unfractionated) VTE Mechanical Devices: Intermittant Pneumatic CD Resuscitation Status: DNR/DNI:Do Not Resuscitate/Intubate Marquez Swift MD Oct 04, 2016 17:23
--- NOTE | 2016-10-04 17:35 | NUR ---
Loose stool Pt. had 1 episode of loose stool this afternoon. Immodium ordered, and will administer once it is up from pharmacy.
[2016-10-04] MEDS ORDERED: Azithromycin Inj 500 MG in Dextrose 5% w/Vial Mate 250 ML IV SCH (21:00)
[2016-10-05 00:39] VITALS: BP 143/65; PULSE 70; RESP 16; O2SAT 94
[2016-10-05] MEDS: Heparin 5,000 Unit/mL Inj SUBQ SCH ×2 (00:39→07:59)
[2016-10-05] MEDS: Piperacillin-Tazo 3.375 Gm Inj 3.375 GM in Dextrose 5% Minibag Plus 50 ML IV SCH ×2 (00:39→08:00)
--- NOTE | 2016-10-05 02:46 | NUR ---
vitals: pt.'s vitals have been stable, she has remained afebrile since yesterday am, bp 143/65.
[2016-10-05 07:51] VITALS: BP 150/68; PULSE 75; O2SAT 95
[2016-10-05] MEDS: Pantoprazole 40 mg ER24 Tablet PO SCH (07:58)
--- NOTE | 2016-10-05 08:45 | PCM.DIMED ---
Discharge Instructions Date of Service Oct 05, 2016 Dates of Hospitalization Oct 02, 2016 at 01:45 Discharge Diagnosis Discharge Diagnosis # sepsis due to cellulitis and UTI,resolving # E.coli UTI,acute,poa #. Cellulitis, present on admission. Active. #. Acute on chronic kidney disease stage 3, present on admission. Active. #. Type 2 diabetes mellitus, present on admission. Active. #. Gastroesophageal reflux disease, present on admission. Chronic. #. Restless legs syndrome, present on admission. Chronic. #. Hypertension, present on admission. Active. #. Other Chronic Conditions - History of CVA with minimal residual defect - Hyperlipidemia - Peripheral vascular disease - COPD, still smoking - Glaucoma - History of GI bleed secondary to Plavix and small bowel AVMs - History of retroperitoneal bleeding status post iliac stenting back in April 2012 - Anemia, multifactorial, likely associated with her chronic iron deficiency as well as her chronic renal disease Diet Low fat, Low Sodium, Heart Healthy Activity No restrictions Call your provider Fever or Chills, Shortness of breath, Bleeding, Chest pain, Vomitting, Excessive diarrhea, Weakness (unilateral) Patient Instructions You were hospitalized due to right leg mild cellulitis and UTI ( bladder infection ).You have been treated with IV antibiotics. Please take Augmentin for 3 more days . Follow-up plan Please follow up with PCP in 1 week Follow-up Provider: Renée Borges Follow-up with PCP in: 1 week Marquez Swift MD Oct 05, 2016 08:45
[2016-10-05] MEDS ORDERED: AMOX-363 PO (08:48)
[2016-10-05] MEDS ORDERED: AMLO5TAB2 PO (08:48)
[2016-10-05 09:47] LABS: BASOPHILS % (AUTO) 0.5 % (0-3); EOSINOPHILS % (AUTO) 7.9 % (0-5); MONOCYTES % (AUTO) 9.9 % (4-12); Mean Corpuscular Hemoglobin 28.5 pg (27.0-35.0); Mean Corpuscular Volume 84.3 fL (81-100); NEUTROPHILS % (AUTO) 61.1 % (40-74); Platelet Count 174 bil/L (150-400)
--- NOTE | 2016-10-05 13:03 | NUR ---
Discharge Pt discharged from unit, accompanied by her brother. Pt provided with information on medications, new antibiotic, signs to watch for, and follow up. Pt knows that she needs to take antibiotics for three more days. Pt instructed, per Dr. Swift, to not take Aldactone until seen by her PCP due to elevated creatinine. Taken off floor in wheelchair.
--- NOTE | 2016-10-05 14:22 | PCM.DC.MED ---
Discharge Summary Date of Service Oct 05, 2016 Dates of Hospitalization Date of Hospital Admission Oct 02, 2016 at 01:45 Date of Discharge: Oct 05, 2016 Providers: Admitting Physician: Rudy Borges Primary Care Physician: Renée Borges Attending Physician: Rudy Borges Diagnosis at Time of Discharge Diagnosis at Time of Discharge # sepsis due to cellulitis and UTI,resolving # E.coli UTI,acute,poa #. Cellulitis, present on admission. Active. #. Acute on chronic kidney disease stage 3, present on admission. Active. #. Type 2 diabetes mellitus, present on admission. Active. #. Gastroesophageal reflux disease, present on admission. Chronic. #. Restless legs syndrome, present on admission. Chronic. #. Hypertension, present on admission. Active. #. Other Chronic Conditions - History of CVA with minimal residual defect - Hyperlipidemia - Peripheral vascular disease - COPD, still smoking - Glaucoma - History of GI bleed secondary to Plavix and small bowel AVMs - History of retroperitoneal bleeding status post iliac stenting back in April 2012 - Anemia, multifactorial, likely associated with her chronic iron deficiency as well as her chronic renal disease Consultations no peoplesoft financials consultant was involved on this case Procedures XRay, CTs & MRIs PROCEDURE: X-RAY CHEST, TWO VIEWS ([id number]) INDICATIONS: cough IMPRESSION: Mildly increased diffuse ill-defined and groundglass opacities raising the possibility of early pulmonary edema, versus atypical/viral pneumonia. Please correlate clinically Dictated by: Misael Carranza M.D. on 10/02/2016 at 7:45 Brief History as per HPI performed by Dr Dang on 10/02/16 Brie Lutz is an 81-year-old female with past medical history significant for CVA, hypertension, hyperlipidemia, CAD status post stent placement, diabetes type II, CKD stage III, COPD, and right fem-pop bypass who presents to the ED via EMS complaining of one month of bilateral leg pain. Patient is a poor historian. Patient states that she has had increasing difficulty walking even with her walker due to the pain for the last two weeks. She had presented two weeks ago to urgent care and was prescribed muscle relaxants that did not improve symptoms. She denies any trauma, cuts, or sores on legs and feet. She states her legs in her opinion do not appear any different. When asked specifically about the redness she states that it is always that way and that the right leg is always more swollen than the left since her fem-pop bypass. Due to the pain she has not been eating as well because she does not feel up to standing and preparing meals. Years ago she saw a solder making supervisor but has not recently. She denies fever, chills, night sweats, nausea, vomiting, diarrhea, constipation, dysuria, hematuria, chest pain, or shortness of breath. Patient received flu vaccine this year. In the ED vitals were temp 38.4, pulse 93, BP 203/71, RR 19 with O2 sat of 98% on RA. Initial labs were significant for WBC 9.4, Hgb 10.6, Hct 32.1, BUN 43, Creatinine 1.46, and glucose 114. Lactic acid was negative. Rapid flu was negative. Patient was given one dose of Zosyn in ED. PCP: Dr. Borges [place] [facility] Brie Lutz is an 81-year-old female with past medical history significant for CVA, hypertension, hyperlipidemia, CAD status post stent placement, diabetes type II, CKD stage III, COPD, and right fem-pop bypass who presents to the ED via EMS complaining of one month of bilateral leg pain. Admitted for cellulitis. # sepsis due to cellulitis and UTI,resolving -Temp 39.1, CASEY with initial creatinine 1.46, initial HR 98 -Chest x-ray viral pneumonia versus pulmonary edema. Respiratory viral PCR ordered,home Lasix resumed. # E.coli UTI,acute,poa -pyuria on UA and urine culture growing Escherichia coli pansensitive -Treated with Zosyn. Will discharge on Augmentin 3 more days #. Mild Cellulitis, present on admission. Active. Right lower extremity erythema and warmth. Possible swelling although difficult to ascertain baseline as patient had fem-pop bypass on right lower extremity and has had chronic lymphedema. - Patient febrile on admission. -Initially treated with Zosyn and Vancomycin. - Lactic acid negative. #. Acute on chronic kidney disease stage 3, present on admission. Active. Patient has had poor oral intake and BP is elevated currently. Last known Creatinine is 1.17 on 05/06/16. -Treated with Gentle IV fluid hydration with NS at 100 ml/hr for a total of 1L . Creatinine improving - Home regimen of spironolactone held,resumed furosemide -Advised to continue holding spironolactone until seen by PCP and repeat CMP -Creatinine on discharge 1.46 #. Type 2 diabetes mellitus, present on admission. Active. Patient no longer takes oral agents. Manages with dietary modifications. - Blood glucose on admit 114. - Hemoglobin A1c 6.5. #. Gastroesophageal reflux disease, present on admission. Chronic. - Nexium 80 mg daily continued from home. #. Restless legs syndrome, present on admission. Chronic. - Mirapex 0.25 mg TID continued from home. - Gabapentin 100 mg TID, 400 mg HS continued from home. #. Hypertension, present on admission. Active. Blood pressure elevated on admission at 203/71 . Patient asymptomatic. - No blood pressure medications in home regimen except diuretics. -Resumed home Lasix Give a dose of amlodipine and responded very well #. Other Chronic Conditions - History of CVA with minimal residual defect - Hyperlipidemia - Peripheral vascular disease - COPD, still smoking - Glaucoma - History of GI bleed secondary to Plavix and small bowel AVMs - History of retroperitoneal bleeding status post iliac stenting back in April 2012 - Anemia, multifactorial, likely associated with her chronic iron deficiency as well as her chronic renal disease Disposition: Discharged home on by mouth Augmentin for 3 days Condition on discharge stable Follow-up with PCP 3-5 days. Advised to get a repeat renal function tests. PCP to decide when to resume spironolactone when CASEY resolves.initial Cr 1.46, improved to 1.28 and went up again to 1.46 up on discharge Exam Vital Signs (Last) Date Time Temp Pulse Resp B/P Pulse Ox O2 Delivery O2 Flow Rate FiO2 10/05/16 07:51 36.4 75 150/68 95 Room Air 10/05/16 00:39 16 Exam General: No acute distress, well-developed, well-nourished, appropriately interactive HEENT: Normocephalic, atraumatic. External ears without defect. Pupils equal, round, and reactive to light and accommodation. Anicteric sclerae, moist conjunctivae, and no lid lag. Dry oral mucosa. Neck: Supple with full range of motion. No jugular venous distension. No bruits. No lymphadenopathy or thyromegaly. Cardiovascular: Regular rate and rhythm with 2/6 systolic murmur. Pulmonary: Clear to auscultation bilaterally with no crackles, wheezes, or rhonchi. Normal respiratory effort with no use of accessory muscles. Abdomen: Bowel tones present. Soft, nontender, nondistended. No hepatosplenomegaly or masses appreciated. Extremities: Right lower extremity erythema and edema starts distal to the knee and extends to the ankle.IMPROVED, Left lower extremity without abnormality. No open wounds or abrasions. Posterior tibialis and dorsal pedis pulses equal and 2 /4 bilaterally. Neurological: Cranial nerves grossly intact. Normal muscle strength, tone, and bulk. Reflexes, coordination, and sensory function within normal limits. Difficulty ambulating. Walks with walker at baseline. Psychiatric: Normal mood and affect. Alert and oriented to person, place, and time. Test 10/01/16 23:55 10/02/16 02:00 10/02/16 06:40 10/03/16 06:25 Prothrombin Time 10.2sec (8.1-12.5) Prothromb Time International Ratio 0.95ratio Activated Partial Thromboplast Time 26.4sec (22.8-33.0) Hemoglobin A1c 6.5% (4.8-5.6) Lactic Acid Level 0.7mmol/L (0.4-2.0) Urine Color Yellow (YELLOW) Urine Appearance Hazy (CLEAR,HAZY) Urine pH 6.0 (5.0-8.0) Urine Specific [place] 1.015 (1.003-1.035) Urine Protein Negativemg/dL (NEG,TRACE) Urine Glucose (UA) Negativemg/dL (NEGATIVE) Urine Ketones Negativemg/dL (NEGATIVE) Urine Occult Blood Trace (NEGATIVE) Urine Nitrite Positive (NEGATIVE) Urine Bilirubin Negative (NEGATIVE) Urine Urobilinogen Normalmg/dL (NORMAL) Urine Leukocyte Esterase Trace (NEGATIVE) Urine RBC 0-2/hpf (0-2) Urine WBC 11-50/hpf (0-5) Urine Epithelial Cells Occasional/hpf (NONE-MOD) Urine Crystals None seen (NONE SEEN) Urine Bacteria Many/hpf (NONE-FEW) Urine Hyaline Casts None/lpf (NONE) Urine Granular Casts None seen (NONE SEEN) Urine Waxy Casts None seen (NONE SEEN) Urine Red Blood Cell Casts None seen (NONE SEEN) Urine White Blood Cell Casts None seen (NONE SEEN) Urine Mucus None seen (None Seen) Urine Trichomonas None seen (NONE SEEN) Urine Yeast None (NONE SEEN) Urine Culture Reflexed Indicated Magnesium Level 1.9mg/dL (1.6-2.6) Streptozyme 19.8IU/mL (0.0-200.0) Random Vancomycin Level 8.2ug/mL Rx Test 10/05/16 09:25 White Blood Count 6.0th/mm3 (3.8-10.1) Red Blood Count 3.69mil/mm3 (3.90-5.20) Hemoglobin 10.5g/dL (12.0-15.6) Hematocrit 31.1% (35.0-46.0) Mean Corpuscular Volume 84.3fL (81-100) Mean Corpuscular Hemoglobin 28.5pg (27.0-35.0) Mean Corpuscular Hemoglobin Concent 33.8% (32.0-37.0) Red Cell Distribution Width 13.8% (12.3-15.4) Platelet Count 174bil/L (150-400) Neutrophils (%) (Auto) 61.1% (40-74) Lymphocytes (%) (Auto) 18.2% (14-46) Monocytes (%) (Auto) 9.9% (4-12) Eosinophils (%) (Auto) 7.9% (0-5) Basophils (%) (Auto) 0.5% (0-3) Sodium Level 131mEq/L (134-144) Potassium Level 3.8mEq/L (3.5-5.2) Chloride Level 92mEq/L (97-108) Carbon Dioxide Level 20mmol/L (18-29) Blood Urea Nitrogen 30mg/dL (8-27) Creatinine 1.43mg/dL (0.57-1.00) Estimat Glomerular Filtration Rate 50mL/min (>59) Glucose Level 138mg/dL (60-99) Calcium Level 8.5mg/dL (8.5-10.1) Total Bilirubin 0.4mg/dL (0.0-1.2) Aspartate Amino Transf (AST/SGOT) 19U/L (0-50) Alanine Aminotransferase (ALT/SGPT) 13U/L (0-32) Alkaline Phosphatase 78U/L (25-165) Total Protein 6.7g/dL (6.4-8.4) Albumin 3.7g/dL (3.4-5.0) Procalcitonin 0.30ng/mL (0.00-0.08) Microbiology Results Microbiology LOWELL CULT URINE Final 10/04/16-1028 Organism 1 ESCHERICHIA COLI U COLONY COUNT/QUANTITY >100,000 CFU/ml Cefazolin-predicts results for the oral agents, cefaclor,cefdinir, cefpodoximen, cefprozil, cefuroximne axetil, cephalexin and loracarbed when used for therapy of uncomplicated UTI's due to E. coli, K. pneumoniae, and Proteus mirabilis. Cefpodoxime, cefdinir and cefuroxime axetil may be tested individually because some isolates may be susceptible to these agents while testing resistant to cefazolin. (CLSI I110-A27 pg 53) 1. ESCHERICHIA COLI M.I.C Interp --------- ------ * AMOXICILLIN/CLAVULATE <=2 S * AMPICILLIN 8 S * CEFAZOLIN (CEPHALOSPORIN) UTI 4 S * CEFEPIME <=1 S * CEFTRIAXONE <=1 S * CEFUROXIME SODIUM 4 S * CIPROFLOXACIN <=0.25 S * ERTAPENEM <=0.5 S * GENTAMICIN <=1 S * IMIPENEM <=1 S * LEVOFLOXACIN <=0.12 S * NITROFURANTOIN <=16 S * TETRACYCLINE <=1 S * TOBRAMYCIN <=1 S * TRIMETHOPRIM/SULFAMETHOXAZOLE <=20 S Discharge Medications Discharge Medications Amoxicillin/Clav K 500-125 mg (Augmentin 500-125 mg) 1 Each Tablet 1 TABLET PO BID Prescribed by: JAY LEIVA MD Aspirin (Aspirin) 81 Mg Tablet 81 MG PO DAILY (Reported) Cholecalciferol (Vitamin D3) (Vitamin D3) 5,000 Unit Tablet 5,000 UNIT PO DAILY (Reported) Esomeprazole Magnesium (Nexium) 40 Mg Capsule.dr 80 MG PO DAILY (Reported) Furosemide (Lasix) 40 Mg Tablet 40 MG PO DAILY (Reported) Gabapentin (Gabapentin) 400 Mg Capsule 400 MG PO HS (Reported) Gabapentin (Neurontin) 100 Mg Capsule 100 MG PO TID (Reported) Multivitamin (Multi Vitamin Daily) 1 Each Tablet 1 EACH PO DAILY (Reported) Pramipexole Dihydrochloride (Mirapex) 0.25 Mg Tablet 0.25 MG PO TID (Reported) Followup Plan Disposition: home Follow-up plan Please follow up with PCP in 1 week Discharge Diet: Low fat, Low Sodium, Heart Healthy Discharge Activity: No restrictions Patient Instructions You were hospitalized due to right leg mild cellulitis and UTI ( bladder infection ).You have been treated with IV antibiotics. Please take Augmentin for 3 more days . Follow-up Provider: Renée Borges Follow-up with PCP in: 1 week Time spent 35 minutes coordinating discharge copies to: Renée Borges Melaku MD Oct 05, 2016 14:22
--- NOTE | 2016-10-05 16:27 | NUR ---
Social Work Note - Readiness for Discharge: D/A: The Pt is an 81 y/o female that was admitted on 10/02/16 for uti, cellulitis, fever. The Pt is ready for D/C with no anticipated needs. P: Pt is now ready for D/C home with family to provide POV transportation, no needs identified. SUNIL Singh Commercial Title Examiner SUNIL Esparza
== END 2016-10-05 12:20 | disposition home or self-care (01) | DRG 872 ==
LOC: EDBD 22:38 → SED 22:38 → OBSVTOIN 10-02 01:45 → MOC 10-02 01:45
PROVIDERS: ADMIT Internal Medicine; ATTEND Hospitalist
DX: A41.9 Sepsis, unspecified organism (principal); N39.0 Urinary tract infection, site not specified; L03.115 Cellulitis of right lower limb; N17.9 Acute kidney failure, unspecified; B96.20 Unspecified Escherichia coli [E. coli] as the cause of diseases classified elsewhere; J44.9 Chronic obstructive pulmonary disease, unspecified; I12.9 Hypertensive chronic kidney disease with stage 1 through stage 4 chronic kidney disease, or unspecified chronic kidney disease; E78.5 Hyperlipidemia, unspecified; N18.3 Chronic kidney disease, stage 3 (moderate); E11.9 Type 2 diabetes mellitus without complications; K21.9 Gastro-esophageal reflux disease without esophagitis; G25.81 Restless legs syndrome; I73.9 Peripheral vascular disease, unspecified; D63.1 Anemia in chronic kidney disease; Z86.73 Personal history of transient ischemic attack (TIA), and cerebral infarction without residual deficits

== ENCOUNTER 2017-02-08 13:53 | Emergency (ER) | payer MEDICARE, MEDICAID ==
[~2017-02-08] VITALS: Ht 152.4 cm; Wt 57.7 kg
[~2017-02-08 13:53] MED LIST changes: +AMOX-363 PO; -SPIR25TA3 PO
[2017-02-08 14:01] VITALS: BP 179/66; PULSE 61; RESP 16; O2SAT 98
[2017-02-08] MEDS ORDERED: Bupivacaine-MPF 0.5% W/EPI 30 mL Inj NERVEBLOCK ONE (15:30)
--- NOTE | 2017-02-08 15:37 | ED.REPORT ---
HPI-Trauma Minor / Fall Date of Service Feb 08, 2017 ED Provider: Naga Mays PA-C Brie is an 82-year-old female presenting out in by EMS with chief complaint of a left leg laceration. Patient reports she lost her balance while stepping off a curb, reached out to support herself on a sign which turned out not to be attached. She fell the ground lacerating her left payton. Denies syncope, presyncope, dizziness preceding the fall. Admits striking the left side of her head on the pavement. Reports that she had a headache which is resolving. Denies use of blood thinners, vomiting, seizure. She is accompanied by a niece reports that she is "loopier" than usual. Denies neck pain. Denies diabetes, HIV, immunosuppression. Nursing Notes Stated Complaint: GLF/LACERATION Chief Complaint: Extremity Trauma Nursing Notes Reviewed: Yes Allergies: Coded Allergies: acetaminophen (Verified Allergy, Severe, Rash,Itching,, 02/08/17) cephalexin (Verified Allergy, Severe, Rash,Itching,, 02/08/17) hydrocodone (Verified Allergy, Severe, Rash,Itching,, 02/08/17) codeine (Verified Adverse Reaction, Intermediate, N/V, 02/08/17) ITCHING Uncoded Allergies: TAPE (Allergy, Mild, Rash,Itching,, 06/08/16) pulls skin off, thin skin - per patient Scheduled Amoxicillin/Clav K 500-125 mg (Augmentin 500-125 mg) 1 Each Tablet 1 TABLET PO BID Aspirin (Aspirin) 81 Mg Tablet 81 MG PO DAILY Cholecalciferol (Vitamin D3) (Vitamin D3) 5,000 Unit Tablet 5,000 UNIT PO DAILY Esomeprazole Magnesium (Nexium) 40 Mg Capsule.dr 80 MG PO DAILY Furosemide (Lasix) 40 Mg Tablet 40 MG PO DAILY Gabapentin (Gabapentin) 400 Mg Capsule 400 MG PO HS Gabapentin (Neurontin) 100 Mg Capsule 100 MG PO TID Multivitamin (Multi Vitamin Daily) 1 Each Tablet 1 EACH PO DAILY Pramipexole Dihydrochloride (Mirapex) 0.25 Mg Tablet 0.25 MG PO TID General Time Seen by MD: 14:55 Chief Complaint Fall Past Medical History Past Medical History 1. Significant for peripheral vascular disease, with five surgeries total, including a right fem-pop bypass in June 2006 with two redo in December 2006 and February 2007, along with bilateral iliac artery angioplasty and stent placement. 2. Chronic kidney disease, stage 3. 3. Hypertension. 4. Hyperlipidemia. 5. History of CVA with minimal residual defect. 6. COPD, still smoking. 7. Glaucoma. 8. History of GI bleed secondary to Plavix along with small-bowel AVMs. 9. Anemia of chronic disease with history of multiple transfusions due to her upper gastrointestinal bleeding. 10. The patient had retroperitoneal bleeding status post iliac stenting back in April 2012. 11. Restless legs syndrome. 12. Gastroesophageal reflux disease. 13. Upper gastrointestinal bleed. 14. Type II diabetes mellitus, oral agent controlled Past Surgical History Hysterectomy, appendectomy, , right femoralpopliteal bypass graft, with two redo's, as well as the bilateral iliac artery angioplasty and stent placement. Smoking History Current Every Day Smoker Social History Alcohol Use: Denies alcohol use Drug Use: Denies drug use Ambulatory Status Independent Review of Systems Review of Systems Note: Negative unless stated otherwise in history of present illness Physical Exam General: Well appearing, well developed, well nourished, no acute distress. Left leg: Roughly 8 cm jagged laceration on the anterior payton, which penetrates the dermis. Sensation, circulation and motion intact distally. Dorsalis pedis pulse 2+ Head: Atraumatic, normocephalic. Neck: Negative midline cervical cervical spine tenderness, excellent range of motion Eyes: No scleral icterus or injection. No discharge. Vision grossly intact. ENT: Voice clear, hearing grossly intact. Respiratory: No respiratory distress, no increased work of breathing. Speaks in complete sentences. Skin: Warm and dry. Neurological: Grossly nonfocal. Cranial nerves: Vision grossly intact, PERRL, EOMI. Facial motion symmetrical, sensation to light touch over forehead, maxilla and mandible present and equal B /L. Voice clear and fluent, no drooling/pooling of saliva, uvula rises midline. Psychological: alert and oriented. Speech appropriate, linear and logical. Behavior appropriate. Initial Vital Signs Vital Signs (First) Date Time Temp Pulse Resp B/P Pulse Ox O2 Delivery O2 Flow Rate FiO2 02/08/17 14:01 36.5 61 16 179/66 98 Room Air Elevated blood pressure Interpretation & Diagnostics CT Head Interpretation PROCEDURE: CT BRAIN WITHOUT CONTRAST ([id number]) INDICATIONS: ground level fall, struck head IMPRESSION: 1. No acute intracranial findings. 2. Findings likely associated with chronic microvascular ischemic changes and left lacunar infarct. Interpretation / Wet Read by: Interpret - Radiologist CT Chest Interpretation PROCEDURE: CT CERVICAL SPINE WITHOUT CONTRAST ([id number]) INDICATIONS: ground level fall, struck head IMPRESSION: 1. No acute fracture of the cervical spine. 2. Moderate multilevel degenerative changes of the cervical spine are most pronounced at the level of C5-6. Interpretation / Wet Read by: Interpret - Radiologist Procedures Laceration Management Wound Length: 8 cm Local Anesthesia: Bupivacaine 0.5% (with epinephrine) Wound Preparation: Shurclens, Normal saline Irrigation: Copious Foreign Body Explore / Removal: Explored for foreign body # Sutures - Skin: 12 Closure Layers: 1 Suture Technique: Mattress Post-Procedure / Complications: Antibiotic oint applied, Dressing applied, No complications, Condition improved, Tolerated procedure well, Patient stable Re-Eval/Medical Decision Med Decision/Clinical Course 82-year-old female with apparently mechanical fall resulting in a deep laceration to her left payton. Neurovascularly intact distal. These reports slightly altered level of consciousness and the patient is more "loopy." I consulted with Dr. Toribio, who recommends CT of the head and cervical spine. These are negative. Physical examination reveals a 8 cm laceration on her anterior payton which penetrates the dermis. This is anesthetized with bupivacaine 0.5% with epinephrine, irrigated with copious normal saline, explored for foreign body, closed with 12 nylon and 4-0 horizontal mattress sutures, dressed with antibiotic ointment and gauze. She tolerates the procedure well. She is up-to-date on her tetanus shot, I see no indication for antibiotics. Advised regarding wound care. Advised regarding primary care follow-up, provided emergency return precautions. Patient verbalized understanding of, and consent to, the plan. Discharge & Departure Impression: Primary Impression: Laceration Additional Impression: Fall Encounter type: initial encounter Qualified Code: W19.XXXA - Unspecified fall, initial encounter Disposition: Home Discharge Condition All VS Reviewed: Yes Condition: Stable Patient Instructions: Laceration (ED) Additional Instructions: Evaluation in the emergency department for a laceration. This appears to be a clean wound, with no damage to the joint capsule or tendons. I see no indication for antibiotics at this time. you have told me that you are up-to-date on your tetanus shot. We have cleaned, sutured and dressed the wound with antibiotic ointment and gauze. Please leave this dressing on and dry for the next 24 hours. After that you can remove the dressing, clean with soap and water and then reapply antibiotic ointment and gauze or Band-Aid. Please do not submerge the wound as in washing dishes, swimming or soaking in a tub until you have the sutures removed. The pain is best treated with up to 600 mg of ibuprofen (Advil, Motrin) every 6 hours. Be vigilant for signs of infection. While a small amount of redness, tenderness and clear or pink drainage is normal, any increasing pain, redness, swelling or the appearance of pus suggests infection. More severe infection as suggested by symptoms such as fever, chills, feeling ill, racing heart. Please return to the emergency Department if you notice signs of infection. Follow-up with your primary care provider or return to the emergency department in 8-10 days for suture removal. Referrals: Renée Borges (PCP) EDSupervising Provider for APC: Sean Toribio MD copies to: Renée Borges Seth PA-C Feb 08, 2017 15:37
--- NOTE | 2017-02-08 16:09 | DRSVH ---
PROCEDURE: CT BRAIN WITHOUT CONTRAST ([id number]) INDICATIONS: ground level fall, struck head TECHNIQUE: Noncontrast 4.5 mm thick angled axial sections acquired from the foramen magnum to the vertex, with c oronal reformats. COMPARISON: [facility], CT, CT BRAIN WO CON, 05/06/2016, 3:39. FINDINGS: Image quality: Excellent. CSF spaces: Basal cisterns are patent. No extra-axial fluid collections. The ventricles are symmet garcia in size and shape. Brain: No intracranial bleeds or masses. There is mild cerebral volume loss for age, with resultant ventricular and sulcal prominence. There are periventricular and deep white matter chronic small ve ssel ischemic changes. There is a small left basal ganglia lacunar infarct. There is intracranial in ternal carotid artery atherosclerosis. Skull and face: Calvarium and visualized facial bones appear intact, without suspicious lesions. Sinuses: Visualized sinuses and mastoids are clear. IMPRESSION: 1. No acute intracranial findings. 2. Findings likely associated with chronic microvascular ischemic changes and left lacunar infarct. Dictated by: Jolanta Lewis M.D. on 02/08/2017 at 16:03 Approved by: Jolanta Lewis M.D. on 02/08/2017 at 16:07
--- NOTE | 2017-02-08 16:14 | DRSVH ---
PROCEDURE: CT CERVICAL SPINE WITHOUT CONTRAST ([id number]) INDICATIONS: ground level fall, struck head TECHNIQUE: Noncontrast 3 mm thick sections acquired from the skull base to the T4 level. Sagittal and coronal r eformats were then constructed. For radiation dose reduction, the following was used: automated exp osure control, adjustment of mA and/or kV according to patient size. COMPARISON: [facility], , CERVICAL SPINE W/O CONTRAST, 04/24/2009, 7:26. FINDINGS: Image quality: Diagnostic. Bones: The craniocervical and atlantoaxial joints are well-maintained. The odontoid is intact. The vertebral body heights and prevertebral soft tissues are within normal limits throughout the cervical spine without evidence to suggest acute compression fracture. No other fractures are evident within the cervical spine. The bone mineralization is within normal limits. There is mild reversal of the normal cervical lordosis. At least moderate multilevel degenerative ch anges of the cervical spine are most pronounced at C5-6 with prominent disc height loss and disc oste ophyte complexes. Multifocal moderate to severe facet arthropathy is identified throughout the cervi maddy spine. Soft tissues: No prevertebral soft tissue swelling. The imaged lung apices are clear. There may be early emphysematous changes within the lung apices. Imaged portions of the mediastinum are unremarka ble. There is aortic atherosclerosis. Otherwise, the remainder of the imaged soft tissues of the nec k are within normal limits. IMPRESSION: 1. No acute fracture of the cervical spine. 2. Moderate multilevel degenerative changes of the cervical spine are most pronounced at the level o f C5-6. Dictated by: Nico Guaman M.D. on 02/08/2017 at 15:09 Approved by: Nico Guaman M.D. on 02/08/2017 at 15:13
[2017-02-08] MEDS ORDERED: Albuterol HFA 60 Puff 8 Gm Inhaler INHALATION SCH (16:30)
[2017-02-08 18:24] VITALS: PULSE 58; RESP 18; O2SAT 97
== END 2017-02-08 18:30 | disposition home or self-care (01) ==
LOC: SED 13:53 → EDUNIT# 13:53 → EDBD 13:53 → SED 18:30
DX: S81.812A Laceration without foreign body, left lower leg, initial encounter (principal); R51 Headache; W18.39XA Other fall on same level, initial encounter; Y93.89 Activity, other specified; Y92.480 Sidewalk as the place of occurrence of the external cause; Y99.8 Other external cause status; I12.9 Hypertensive chronic kidney disease with stage 1 through stage 4 chronic kidney disease, or unspecified chronic kidney disease; N18.3 Chronic kidney disease, stage 3 (moderate); E78.5 Hyperlipidemia, unspecified; J44.9 Chronic obstructive pulmonary disease, unspecified; K21.9 Gastro-esophageal reflux disease without esophagitis; E11.22 Type 2 diabetes mellitus with diabetic chronic kidney disease; I69.90 Unspecified sequelae of unspecified cerebrovascular disease; F17.200 Nicotine dependence, unspecified, uncomplicated; Z95.5 Presence of coronary angioplasty implant and graft; Z79.82 Long term (current) use of aspirin; Z79.84 Long term (current) use of oral hypoglycemic drugs; Z88.5 Allergy status to narcotic agent; Z88.8 Allergy status to other drugs, medicaments and biological substances; Z91.048 Other nonmedicinal substance allergy status; Z88.1 Allergy status to other antibiotic agents

== ENCOUNTER 2017-02-14 06:11 | Emergency (ER) | payer MEDICARE, MEDICAID ==
[~2017-02-14] VITALS: Ht 152.4 cm; Wt 59.0 kg
[2017-02-14 06:13] VITALS: BP 197/66; PULSE 72; RESP 16; O2SAT 99
--- NOTE | 2017-02-14 06:17 | ED.REPORT ---
HPI-Extremity Problem Lower Date of Service Feb 14, 2017 ED Provider: Carlos Desir MD Patient is an 82 year old female with a hx of HTN, COPD, and CVA who presents to the ED complaining of L leg redness onset a few days ago s/p receiving sutures at the area of concern 10 days ago. Her sutures are set to come out in 2 days. She denies drainage, fever, or any other symptoms. She was not given antibiotics at the time of suture placement but has been putting antibiotic cream on it. Nursing Notes Stated Complaint: POSS LEFT LEG INFECTION Chief Complaint: Extremity Trauma Nursing Notes Reviewed: Yes Allergies: Coded Allergies: acetaminophen (Verified Allergy, Severe, Rash,Itching,, 02/08/17) cephalexin (Verified Allergy, Severe, Rash,Itching,, 02/08/17) hydrocodone (Verified Allergy, Severe, Rash,Itching,, 02/08/17) codeine (Verified Adverse Reaction, Intermediate, N/V, 02/08/17) ITCHING Uncoded Allergies: TAPE (Allergy, Mild, Rash,Itching,, 06/08/16) pulls skin off, thin skin - per patient Scheduled Amoxicillin/Clav K 500-125 mg (Augmentin 500-125 mg) 1 Each Tablet 1 TABLET PO BID Aspirin (Aspirin) 81 Mg Tablet 81 MG PO DAILY Cholecalciferol (Vitamin D3) (Vitamin D3) 5,000 Unit Tablet 5,000 UNIT PO DAILY Clindamycin (Clindamycin) 300 Mg Capsule 300 MG PO QID Esomeprazole Magnesium (Nexium) 40 Mg Capsule.dr 80 MG PO DAILY Furosemide (Lasix) 40 Mg Tablet 40 MG PO DAILY Gabapentin (Gabapentin) 400 Mg Capsule 400 MG PO HS Gabapentin (Neurontin) 100 Mg Capsule 100 MG PO TID Multivitamin (Multi Vitamin Daily) 1 Each Tablet 1 EACH PO DAILY Pramipexole Dihydrochloride (Mirapex) 0.25 Mg Tablet 0.25 MG PO TID General Time Seen by MD: 06:15 Chief Complaint Leg injury left Hx Obtained From: Patient Arrived By: Walk-in Onset Occurred: 2 days ago Symptom Duration: Since onset Immunizations: Unknown Past Medical History Past Medical History 1. Significant for peripheral vascular disease, with five surgeries total, including a right fem-pop bypass in June 2006 with two redo in December 2006 and February 2007, along with bilateral iliac artery angioplasty and stent placement. 2. Chronic kidney disease, stage 3. 3. Hypertension. 4. Hyperlipidemia. 5. History of CVA with minimal residual defect. 6. COPD, still smoking. 7. Glaucoma. 8. History of GI bleed secondary to Plavix along with small-bowel AVMs. 9. Anemia of chronic disease with history of multiple transfusions due to her upper gastrointestinal bleeding. 10. The patient had retroperitoneal bleeding status post iliac stenting back in April 2012. 11. Restless legs syndrome. 12. Gastroesophageal reflux disease. 13. Upper gastrointestinal bleed. 14. Type II diabetes mellitus, oral agent controlled Past Surgical History Hysterectomy, appendectomy, , right femoralpopliteal bypass graft, with two redo's, as well as the bilateral iliac artery angioplasty and stent placement. Reports: Cataract surgery Smoking History Current Every Day Smoker Social History Alcohol Use: Denies alcohol use Drug Use: Denies drug use Ambulatory Status Independent Review of Systems Review of Systems Note: - drainage + Left lower extremity erythema Constitutional: Denies: Fever Complete sys rev & neg: except as marked. Physical Exam Initial Vital Signs Vital Signs (First) Date Time Temp Pulse Resp B/P Pulse Ox O2 Delivery O2 Flow Rate FiO2 02/14/17 06:13 36 72 16 197/66 99 Initial VS: Reviewed General/Constitutional: Well-developed, Well-nourished Head / Eyes: Atraumatic, Normocephalic Neck: Full range of motion Respiratory: No respiratory distress Cardiovascular: Intact distal pulses Neurologic: Alert, Oriented, Nonfocal Psychiatric: Mood/affect normal, Behavior normal, Normal thought content Left Leg / Calf: Positive: Erythema present 8 cm laceration on the left lower extremity with mild erythema extending 2-3 cm. No purulent drainage. Sutures in place. Ankle / Foot: Inspection NL Re-Eval/Medical Decision Med Decision/Clinical Course Patient is a relatively healthy 82-year-old female with recent laceration to left lower extremity who presents the emergency department due to concern for infection. Examination reveals changes consistent with mild cellulitis. Sutures were placed 10 days ago and were removed today by RN. There is no purulent drainage or evidence of abscess/foreign body. Patient is afebrile and nontoxic in appearance. She is allergic to Keflex prescribed a 7 day course of clindamycin. She is advised to return right away if she develops fevers or increasing swelling/redness. At this time I feel she is appropriate for discharge. Prior to discharge follow-up and return precautions were reviewed in detail with the patient who verbalized understanding and agreement with the plan. The patient was discharged in stable condition. Re-Evaluation/Progress : Time of Eval: 06:42 Re-Evaluation/Progress Note: Sutures were removed and discussed plan for discharge. Patient understands and agrees with plan. All questions addressed at this time. Counseled Regarding: Diagnosis, Need for follow-up, When/why to return to ED Discharge & Departure Impression: Primary Impression: Cellulitis Site of cellulitis: extremity Site of cellulitis of extremity: lower extremity Laterality: left Qualified Code: L03.116 - Cellulitis of left lower limb Additional Impression: Laceration of left lower extremity Encounter type: initial encounter Qualified Code: S81.812A - Laceration without foreign body, left lower leg, initial encounter Disposition: Home Discharge Condition All VS Reviewed: Yes Condition: Stable Additional Instructions: Thank you for seeking care at the emergency room. It is difficult for us to make definitive diagnoses in the ED but we believe that you are experiencing mild cellulitis. Our primary goal today in the ED was to evaluate you for any life-threatening conditions. Your evaluation was reassuring. You will be discharged with a prescription for antibiotics. please take as directed. You should follow-up with your primary doctor in the next week. You should return to the ED immediately if you develop increasing redness, fevers, vomiting, cough, shortness of breath, chest pain, lightheadedness, weakness or any other concerning signs or symptoms. Thank you for letting us partake in your care today. Referrals: Renée Borges (PCP) Scribe Attestation Portions of this note were transcribed by Rui Robert. I, Dr. Desir personally performed the history, physical exam and medical decision-making; I reviewed and confirmed the accuracy of the information in the transcribed note. Signed by: Rui Robert 02/14/17, 0633 copies to: Renée Borges Beck O MD Feb 14, 2017 06:17 RUI ROBERT Feb 14, 2017 06:24
[2017-02-14] MEDS ORDERED: CLIN-78 PO (06:29)
== END 2017-02-14 06:43 | disposition home or self-care (01) ==
LOC: SED 06:11
DX: L03.116 Cellulitis of left lower limb (principal); S81.812D Laceration without foreign body, left lower leg, subsequent encounter; X58.XXXD Exposure to other specified factors, subsequent encounter; Y93.89 Activity, other specified; Y99.8 Other external cause status; Y92.9 Unspecified place or not applicable; I12.9 Hypertensive chronic kidney disease with stage 1 through stage 4 chronic kidney disease, or unspecified chronic kidney disease; N18.3 Chronic kidney disease, stage 3 (moderate); E78.5 Hyperlipidemia, unspecified; J44.9 Chronic obstructive pulmonary disease, unspecified; D63.1 Anemia in chronic kidney disease; K21.9 Gastro-esophageal reflux disease without esophagitis; E11.9 Type 2 diabetes mellitus without complications; F17.200 Nicotine dependence, unspecified, uncomplicated; Z90.710 Acquired absence of both cervix and uterus; Z90.89 Acquired absence of other organs; Z86.73 Personal history of transient ischemic attack (TIA), and cerebral infarction without residual deficits; Z79.82 Long term (current) use of aspirin; Z88.6 Allergy status to analgesic agent; Z88.1 Allergy status to other antibiotic agents; Z88.5 Allergy status to narcotic agent

== ENCOUNTER 2017-02-21 07:30 | Emergency (ER) | payer MEDICARE, MEDICAID ==
[~2017-02-21] VITALS: Ht 152.4 cm; Wt 57.7 kg
[~2017-02-21 07:30] MED LIST changes: +CLIN-78 PO
[2017-02-21 07:44] VITALS: BP 181/56; PULSE 54; RESP 15; O2SAT 99
--- NOTE | 2017-02-21 08:23 | ED.REPORT ---
HPI-Extremity Problem Lower Date of Service Feb 21, 2017 ED Provider: Simone Baker MD Patient is an 82 year olf female with a hx of peripheral vascular disease, HTN, hyperlipidemia, CVA, COPD, and DM who presents to the ED for a wound check of her left leg. She had sutures placed 17 days ago that were removed in the department 7 days ago. When they were removed she was prescribed Clindamycin 300 mg for 7 days as she believed she had increasing redness around the sutures. She now complains of increasing redness extending down to her foot. She denies pain, fevers, chills, drainage, or any other symptoms. She has been putting antibiotic ointment on her wound as well. She has an appointment with her PCP in 2 days. Nursing Notes Stated Complaint: WOUND CHECK Chief Complaint: Wound Recheck/Suture Removal Nursing Notes Reviewed: Yes (Class [employer], med not reconciled) Allergies: Coded Allergies: acetaminophen (Verified Allergy, Severe, Rash,Itching,, 02/08/17) cephalexin (Verified Allergy, Severe, Rash,Itching,, 02/08/17) hydrocodone (Verified Allergy, Severe, Rash,Itching,, 02/08/17) codeine (Verified Adverse Reaction, Intermediate, N/V, 02/08/17) ITCHING Uncoded Allergies: TAPE (Allergy, Mild, Rash,Itching,, 06/08/16) pulls skin off, thin skin - per patient Scheduled Amoxicillin/Clav K 500-125 mg (Augmentin 500-125 mg) 1 Each Tablet 1 TABLET PO BID Aspirin (Aspirin) 81 Mg Tablet 81 MG PO DAILY Cholecalciferol (Vitamin D3) (Vitamin D3) 5,000 Unit Tablet 5,000 UNIT PO DAILY Clindamycin (Clindamycin) 300 Mg Capsule 300 MG PO QID Clindamycin (Clindamycin) 300 Mg Capsule 300 MG PO QID Esomeprazole Magnesium (Nexium) 40 Mg Capsule.dr 80 MG PO DAILY Furosemide (Lasix) 40 Mg Tablet 40 MG PO DAILY Gabapentin (Gabapentin) 400 Mg Capsule 400 MG PO HS Gabapentin (Neurontin) 100 Mg Capsule 100 MG PO TID Lactobacillus Acidophilus (Probiotic) 1 Each Capsule 1 EACH PO DAILY Multivitamin (Multi Vitamin Daily) 1 Each Tablet 1 EACH PO DAILY Pramipexole Dihydrochloride (Mirapex) 0.25 Mg Tablet 0.25 MG PO TID General Time Seen by MD: 08:02 Chief Complaint Leg injury left Hx Obtained From: Patient Arrived By: Walk-in Recent Healthcare: Recent doctor visit, Previous diagnosis Similar Sx Previous: Yes Past Medical History Past Medical History Notes: Seen in ED 02/14/17 for wound check following suture repair, placed on clindamycin and sutures removed Past Medical History 1. Significant for peripheral vascular disease, with five surgeries total, including a right fem-pop bypass in June 2006 with two redo in December 2006 and February 2007, along with bilateral iliac artery angioplasty and stent placement. 2. Chronic kidney disease, stage 3. 3. Hypertension. 4. Hyperlipidemia. 5. History of CVA with minimal residual defect. 6. COPD, still smoking. 7. Glaucoma. 8. History of GI bleed secondary to Plavix along with small-bowel AVMs. 9. Anemia of chronic disease with history of multiple transfusions due to her upper gastrointestinal bleeding. 10. The patient had retroperitoneal bleeding status post iliac stenting back in April 2012. 11. Restless legs syndrome. 12. Gastroesophageal reflux disease. 13. Upper gastrointestinal bleed. 14. Type II diabetes mellitus, oral agent controlled Past Surgical History Hysterectomy, appendectomy, , right femoralpopliteal bypass graft, with two redo's, as well as the bilateral iliac artery angioplasty and stent placement. Reports: Cataract surgery Smoking History Current Every Day Smoker Social History Alcohol Use: Denies alcohol use Drug Use: Denies drug use Ambulatory Status Independent Review of Systems Review of Systems Note: +redness surrounding sutures -pain, drainage Constitutional: Denies: Chills, Fever Complete sys rev & neg: except as marked. Physical Exam Initial Vital Signs Vital Signs (First) Date Time Temp Pulse Resp B/P Pulse Ox O2 Delivery O2 Flow Rate FiO2 02/21/17 07:44 36.4 54 15 181/56 99 Room Air Initial VS: Reviewed Head / Eyes: Atraumatic, Normocephalic Neck: Full range of motion Respiratory: No respiratory distress Cardiovascular: Intact distal pulses Skin: Warm, Dry Neurologic: Alert, Oriented, Nonfocal Psychiatric: Mood/affect normal, Behavior normal, Normal thought content Lower Extremity / Pelvis / MS: No deformity wound not clinically infected faint erythema-/pinkness of lower leg not classical cellulitis, no induration foot warm no compartment syndrome or drainage Ankle / Foot: Inspection NL General/Constitutional: Awake, Alert, No acute distress, Well appearing, Well developed, Well hydrated, Well nourished, Cooperative, Not toxic appearing Re-Eval/Medical Decision Med Decision/Clinical Course This is an 82-year-old female presents for recheck of the anterior payton wound with a specific concern that she thinks that her anabolic should be extended. The patient had a suture repair of the leg, she has a history of vascular disease and diabetes, who presented with mild cellulitis and was started on clindamycin given her allergy profile. In general she reports she is doing much better, she has not had any pain, there is no swelling, no fever, drainage , but she still notes a slight area of pinkness that has extended outside the lines that were driven when the cellulitis was circumscribed, and she only has 2 pills left and clindamycin-so she came back in for recheck. Is afebrile, nontoxic, clinically well-appearing. On exam the wound appears to be healing, I do not appreciate overt signs of cellulitis to my eye. There is a faint pinkness, but no overt cellulitis, no induration, no drainage, no warmth , no pain. However the patient means highly concerned, given her comorbidities , I do not think is unreasonable to extend the clindamycin at her request. I have gone ahead and written a prescription, however I also recommended the patient be on a probiotic given the use of clindamycin. I have written a prescription for this as well. Wound care as we discussed, patient's discharged in good condition. Return precautions again reviewed. Source of Hx: Old records Re-Evaluation/Progress : Time of Eval: 08:29 Re-Evaluation/Progress Note: Discussed plan for discharge. Patient understands and agrees with plan. All questions addressed at this time. Differential Diagnosis: Positive: Cellulitis (healing), Laceration (recheck), Negative: Abrasion, Abscess, Compartment syndrome, Hip fracture, Intertrochanteric fractur, Phalanx proximal fracture, Proximal tibia fracture, Puncture wound, Subungual hematoma, Superficial thrombophleb, Tibia distal fracture, Tibial shaft fracture, Venous thromboembolism Counseled Regarding: Diagnosis, Need for follow-up, When/why to return to ED Discharge & Departure Impression: Primary Impression: Encounter for re-check of laceration wound Disposition: Home Discharge Condition All VS Reviewed: Yes Condition: Stable Additional Instructions: 1. The wound actually appears to be healing adequately to my eyes. I do not appreciate overt signs of infection today. However, I do think it is reasonable to extend your antibiotics while longer. 2. Continue Clindamycin 300 mg 4 times a day for another 7 days. 3. I do recommend taking a probiotic daily while you are on antibiotic, and in for at least another 2 weeks after finishing the antibiotic. 4. Continue to apply topical antibiotic ointment to the wound daily. 5. Continue current wound care. 6. Return again if new or worsening symptoms-increasing pain, fever, redness, swelling or new symptoms occur. Referrals: Renée Borges (PCP) Scribe Attestation Portions of this note were transcribed by Rui Whiteside. I, Dr. Baker personally performed the history, physical exam and medical decision-making; I reviewed and confirmed the accuracy of the information in the transcribed note. Signed by: Rui Whiteside 02/21/2017, 0990 copies to: Renée Borges Matthew F MD Feb 21, 2017 08:23 RUI WHITESIDE Feb 21, 2017 08:30
[2017-02-21] MEDS ORDERED: LACT1CAP65 PO (08:46)
[2017-02-21] MEDS ORDERED: CLIN-78 PO (08:46)
== END 2017-02-21 09:01 | disposition home or self-care (01) ==
LOC: SED 07:30
DX: S81.812D Laceration without foreign body, left lower leg, subsequent encounter (principal); W01.0XXD Fall on same level from slipping, tripping and stumbling without subsequent striking against object, subsequent encounter; Y92.9 Unspecified place or not applicable; Y99.8 Other external cause status; J44.9 Chronic obstructive pulmonary disease, unspecified; E78.5 Hyperlipidemia, unspecified; E11.9 Type 2 diabetes mellitus without complications; I12.9 Hypertensive chronic kidney disease with stage 1 through stage 4 chronic kidney disease, or unspecified chronic kidney disease; N18.3 Chronic kidney disease, stage 3 (moderate); K21.9 Gastro-esophageal reflux disease without esophagitis; F17.200 Nicotine dependence, unspecified, uncomplicated; Z90.49 Acquired absence of other specified parts of digestive tract; Z86.73 Personal history of transient ischemic attack (TIA), and cerebral infarction without residual deficits; Z86.79 Personal history of other diseases of the circulatory system; Z90.710 Acquired absence of both cervix and uterus; Z79.82 Long term (current) use of aspirin; Z88.6 Allergy status to analgesic agent; Z88.5 Allergy status to narcotic agent; Z88.1 Allergy status to other antibiotic agents